=== PATIENT | female | born 1985 | race American Indian/Alaskan Native ===

== ENCOUNTER 2018-04-27 16:32 | Outpatient (CLI) | payer MEDICAID ==
[2018-04-27 18:50] LABS: Alanine Aminotransferase 6 units/L (7-56); Uric Acid 3.3 mg/dL (3.5-7.6)
[2018-04-27 18:51] LABS: Hematocrit 26.5 % (30.3-42.9); Hemoglobin 8.4 gm/dl (10.1-14.3); Mean Corpuscular HGB Conc 32 % (30-34); Mean Corpuscular Hemoglobin 27 pg (28-32); Mean Corpuscular Volume 84 fl (79-97); Red Blood Count 3.14 M/mm3 (3.65-5.03)
[2018-04-27 18:52] LABS: Basophils % (Auto) 0.4 % (0.0-1.8); Lymphocytes # (Auto) 1.9 K/mm3 (1.2-5.4); Lymphocytes % (Auto) 21.8 % (13.4-35.0); Monocytes # (Auto) 1.1 K/mm3 (0.0-0.8); Monocytes % (Auto) 12.8 % (0.0-7.3); Platelet Count 274 K/mm3 (140-440); Red Cell Distribution Width 17.2 % (13.2-15.2)
[2018-04-27 18:53] LABS: Eosinophils # (Auto) 0.1 K/mm3 (0.0-0.4)
[2018-04-27 19:24] VITALS: BP 137/86
[2018-04-27 19:44] LABS: Bacteria,Urine 1+ /HPF (Negative); Calcium Oxalate Crystals,Urine 1+; Mucus,Urine FEW /HPF
[2018-04-27 20:05] LABS: Color,Urine Straw (Yellow)
[2018-04-27 20:06] LABS: Bilirubin,Urine Negative (Negative); Blood,Urine Negative (Negative); Protein,Urine <15 mg/dL mg/dL (Negative); Urobilinogen,Urine < 2.0 mg/dL (<2.0)
--- NOTE | 2018-04-27 20:09 | Ultrasound Report ---
FINAL REPORT EXAM: US OB LIMITED HISTORY: elevated b/p's in office TECHNIQUE: Obstetrical sonographic imaging was performed Comparison: None FINDINGS: Images demonstrate single live intrauterine gestation in cephalic presentation. Calculated SHMUEL 10.9 centimeters. heart rate measures 150 beats per minute. IMPRESSION: Single live intrauterine gestation. Cephalic presentation. SHMUEL 10.9 centimeters. heart rate 150 beats per minute.
--- NOTE | 2018-04-27 20:11 | Ultrasound Report ---
FINAL REPORT EXAM: US OB BPP WO NON-STRESS HISTORY: elevated b/p's in office estimated gestational age 38 weeks 0 days, estimated due date 05/11/2018 TECHNIQUE: Obstetrical sonographic imaging was performed. Biophysical profile score 8/8. heart rate 150 beats per minute. FINDINGS: Biophysical profile score 8/8. IMPRESSION:
== END 2018-04-27 19:59 | disposition home or self-care (01) ==
LOC: TRG 16:32
PROVIDERS: ATTEND Obstetrics & Gynecology
DX: O47.1 False labor at or after 37 completed weeks of gestation (principal); Z3A.38 38 weeks gestation of pregnancy
CPT/HCPCS: 36415; 59025; 76815; 76819; 81001; 82565; 83615; 84450; 84460; 84550; 85025

== ENCOUNTER 2018-04-29 12:02 | Inpatient (IN) | payer MEDICAID ==
[2018-04-29] MEDS ORDERED: MINERAL OIL PO PRN (14:26)
[2018-04-29] MEDS ORDERED: BRETHINE IVP PRN (14:26)
[2018-04-29] MEDS ORDERED: BRETHINE SUB-Q PRN (14:26)
[2018-04-29] MEDS ORDERED: SUBLIMAZE IV PRN (14:26)
[2018-04-29] MEDS ORDERED: XYLOCAINE 2% INFILTRATI ONE (14:26)
[2018-04-29 14:39] LABS: Basophils % (Auto) 0.6 % (0.0-1.8); Eosinophils # (Auto) 0.1 K/mm3 (0.0-0.4); Hematocrit 27.1 % (30.3-42.9); Hemoglobin 8.7 gm/dl (10.1-14.3); Lymphocytes # (Auto) 1.5 K/mm3 (1.2-5.4); Lymphocytes % (Auto) 19.4 % (13.4-35.0); Mean Corpuscular HGB Conc 32 % (30-34); Mean Corpuscular Hemoglobin 27 pg (28-32); Mean Corpuscular Volume 83 fl (79-97); Monocytes # (Auto) 0.9 K/mm3 (0.0-0.8); Monocytes % (Auto) 11.5 % (0.0-7.3); Platelet Count 296 K/mm3 (140-440); Red Blood Count 3.25 M/mm3 (3.65-5.03); Red Cell Distribution Width 17.4 % (13.2-15.2)
--- NOTE | 2018-04-29 14:39 | History and Physical Report ---
History of Present Illness Date of examination: 04/29/18 Date of admission: 04/29/18 Chief complaint: Contractions History of present illness: 32yo G 4 P 1 0 2 1 at 38 weeks 2 days here from the office with c/o contractions. She denies VB, LOF, headache, visual disturbances or RUQ pain. She is a [facility] patient who initiated care at 10 weeks gestation. Her course was complicated by PIH (on Labetalol 100mg PO BID ), anemia (on iron therapy) and vitamin D deficiency (supplementation completed) . She has a h/o genital herpes; on suppressive therapy. labs: O+, antibody neg, Rubella immune, VDRL NR, HBsAg neg, HIV neg, CT /NG neg, GBS neg. Past History Past Medical History: other (ectopic ) Past Surgical History: other (hernia repair, salpingostomy) BUSINESS APPLICATIONS SPECIALIST History: chlamydia, gonorrhea, herpes, other (TIA) Family/Genetic History: heart disease (cardiac arrest), other (major depression , ) Social history: single, lives with family, full code. denies: smoking, alcohol abuse, IV drug use - Obstetrical History Expected Date of Delivery: 05/11/18 Actual Gestation: 38 Week(s) 2 Day(s) : 4 Para: 1 Hx # Term Pregnancies: 1 Number of Pregnancies: 0 Spontaneous Abortions: 2 Number of Living Children: 1 #1 Infant Gender: Male year: [birth year]) Birthweight: 3.232 kg Method of Delivery: Vaginal Gestational age at delivery: 39 Complications: none Medications and Allergies Allergies Allergy/AdvReac Type Severity Reaction Status Date / Time Penicillins Allergy Severe Hives Verified 04/27/18 17:41 Home Medications Medication Instructions Recorded Confirmed Last Taken Type Ciprofloxacin HCl [Cipro] 500 mg PO Q12H #14 tab 01/19/14 Unknown Rx Fluconazole [Diflucan] 50 mg PO QDAY #2 tablet 01/19/14 Unknown Rx HYDROcodone/APAP 5-325 [[place] 1 each PO Q6HR PRN #10 tablet 01/19/14 Unknown Rx 5/325 mg] Phenazopyridine [Pyridium] 100 mg PO Q8H #9 tablet 01/19/14 Unknown Rx Active Meds: Active Medications Ephedrine Sulfate (Ephedrine Sulfate) 10 mg IV Q2M PRN PRN Reason: Hypotension Fentanyl (Sublimaze) 100 mcg IV Q2H PRN PRN Reason: Labor Pain Lactated Ringer's (Lactated Ringers) 1,000 mls @ 125 mls/hr IV DIRECT MARLENY Oxytocin/Sodium Chloride (Pitocin/Ns 20 Unit/1000ml Drip) 20 units in 1,000 mls @ 125 mls/hr IV DIRECT MARLENY Lidocaine (Xylocaine 2%) 20 ml INFILTRATI ONCE ONE Stop: 04/29/18 14:27 Mineral Oil (Mineral Oil) 30 ml PO QHS PRN PRN Reason: Constipation Terbutaline Sulfate (Brethine) 0.25 mg SUB-Q ONCE PRN PRN Reason: Hyperstimulation/Hypertonicity Terbutaline Sulfate (Brethine) 0.25 mg IVP ONCE PRN PRN Reason: Hyperstimulation/Hypertonicity Review of Systems All systems: negative - Vital Signs Vital signs: Vital Signs Temp Resp 97.2 F L 18 04/29/18 13:51 04/29/18 13:51 Temp Pulse Resp BP Pulse Ox 97.2 F L 83 18 130/74 04/29/18 13:51 04/29/18 14:27 04/29/18 13:51 04/29/18 14:27 - Obstetrical FHR: category 2 FHR comments: baseline 140, moderate variability, + accels, variable decels Cervical Dilatation: 3.5 (per RN) Cervical Effacement Percentage: 70 (per RN) station: -2 (per RN) Uterine Contraction Frequency (min): 2-4 Uterine Contraction Pattern: Regular Results All other labs normal. Assessment and Plan - Patient Problems (1) 38 weeks gestation of Current Visit: Yes Status: Acute (2) Active labor at term Current Visit: Yes Status: Acute Plan to address problem: Admit to L&D with routine labor orders Oxytocin for augmentation, if indicated Anticipate vaginal delivery (3) PIH ( induced hypertension) Current Visit: Yes Status: Acute Qualifiers: Trimester: third trimester Qualified Code(s): O13.3 - Gestational [ -induced] hypertension without significant proteinuria, third trimester Plan to address problem: BPs stable: SBP 130-142, DBP 74-85 PIH labs ordered Continue antihypertensive therapy with Labetalol 100mg PO BID
[2018-04-29] MEDS: LACTATED RINGERS 1,000 ML IV SCH ×3 (14:58→17:14)
[2018-04-29] MEDS ORDERED: PITOCin/NS 20 UNIT/1000ML DRIP 20 UNITS/1,000 ML BAG IV SCH (15:00)
[2018-04-29 16:13] LABS: Uric Acid 3.2 mg/dL (3.5-7.6)
[2018-04-29] MEDS ORDERED: NARCAN 2 MG/2 ML IV PRN (17:14)
--- NOTE | 2018-04-29 17:14 | Anesthesia Consultation ---
Anesthesia Consult and Med Hx Date of service: 04/29/18 - Airway Anesthetic Teeth Evaluation: Good ROM Head & Neck: Adequate Mental/Hyoid Distance: Adequate Mallampati Class: Class II Intubation Access Assessment: Probably Good - Pre-Operative Health Status ASA Pre-Surgery Classification: ASA2 Proposed Anesthetic Plan: Epidural, Spinal - Pulmonary Hx Asthma: No COPD: No Hx Pneumonia: No - Cardiovascular System Hx Hypertension: Yes (taking labetalol) - Central Nervous System Hx Seizures: No Hx Psychiatric Problems: No - Endocrine Hx Renal Disease: No Hx End Stage Renal Disease: No Hx Hypothyroidism: No Hx Hyperthyroidism: No - Hematic Hx Anemia: No Hx Sickle Cell Disease: No - Other Systems Hx Alcohol Use: No
[2018-04-29] MEDS ORDERED: fentaNYL-BUPIV 2 MCG/ML-0.125% 200 MCG/100 ML BAG EPIDURAL SCH (18:00)
[2018-04-29] MEDS ORDERED: DULCOLAX PR PRN (21:43)
[2018-04-29] MEDS ORDERED: TUCKS PAD TP PRN (21:43)
[2018-04-29] MEDS ORDERED: TYLENOL PO PRN (21:43)
[2018-04-29] MEDS ORDERED: MILK OF MAGNESIA PO PRN (21:43)
[2018-04-29] MEDS ORDERED: LANSINOH TP PRN (21:43)
--- NOTE | 2018-04-29 21:51 | Procedure Note ---
OB Delivery Note - Delivery Date of Delivery: 04/29/18 Surgeon: MARY MEDRANO Estimated blood loss: other (250 cc) - Vaginal Delivery presentation: vertex Delivery position: OA Intrapartum events: shoulder dystocia Delivery induction: none Delivery monitor: external FHT, external uterine Route of delivery: Delivery placenta: spontaneous Delivery cord: nuchal cord, 3 umbilical vessels Episiotomy: none Delivery laceration: none Anesthesia: epidural Delivery comments: liveborn female infant weighing 5 lbs. 15 oz. over intact perineum. Nuchal cord times 1 manually reduced. Mild shoulder dystocia resolved with rotation of shoulders to oblique. Cord blood obtained. Spontaneous delivery of intact placenta and membranes; EBL 250 cc. Pitocin to IV fluids after delivery of placenta. No lacerations noted on careful inspection. Vaginal sweep negative. Sponge count correct. NICU present for delivery.
[2018-04-29] MEDS ORDERED: NORMODYNE PO SCH (22:00)
[2018-04-29] MEDS ORDERED: SODIUM CHLORIDE FLUSH SYRINGE 10 ML IV PRN (22:00)
[2018-04-29] MEDS ORDERED: FEOSOL PO SCH (22:00)
[2018-04-29] MEDS: COLACE PO SCH (23:31)
[2018-04-29] MEDS: MOTRIN PO SCH (23:32)
[2018-04-30] MEDS: MOTRIN PO SCH ×3 (05:41→23:52)
[2018-04-30 08:55] LABS: Hematocrit 25.7 % (30.3-42.9); Hemoglobin 8.1 gm/dl (10.1-14.3)
--- NOTE | 2018-04-30 09:02 | Progress Note ---
Assessment and Plan A: day 1 S/P . Anemia. P: Supplement with iron TID. Encouraged ambulation. Subjective - Subjective Date of service: 04/30/18 Principal diagnosis: day 1 S/P Interval history: day 1 S/P spontaneous vaginal delivery. Patient is doing well. She is voiding without difficulty and ambulating well. She is tolerating a regular diet. She reports a small to moderate amount of lochia. Patient denies headache, chest pain, cough, shortness of breath, nausea or vomiting, or leg pain. Reports afterbirth cramping and wants to take a different medication for this. Patient is undecided what she wants to use for control but is considering Nexplanon. Patient reports: appetite normal, voiding normally, pain well controlled, flatus , ambulating normally [place]: doing well Objective - Vital Signs Latest vital signs: Vital Signs Temp Pulse Resp BP BP Pulse Ox 04/30/18 07:50 97.9 F 91 H 20 110/60 100 04/30/18 05:41 18 04/29/18 23:32 18 04/29/18 22:55 98.6 F 88 20 120/72 04/29/18 22:22 85 127/85 04/29/18 22:13 82 100 04/29/18 22:07 86 99 04/29/18 21:52 88 135/79 04/29/18 21:37 100 H 139/78 04/29/18 21:22 89 140/85 04/29/18 21:08 90 149/83 04/29/18 20:53 92 H 131/61 04/29/18 20:37 103 H 155/73 04/29/18 20:22 83 133/78 04/29/18 20:08 80 136/86 04/29/18 20:07 78 100 04/29/18 20:02 71 100 04/29/18 19:57 83 100 04/29/18 19:54 80 142/79 04/29/18 19:52 81 100 04/29/18 19:47 90 100 04/29/18 19:42 78 100 04/29/18 19:38 80 130/80 04/29/18 19:37 78 100 04/29/18 19:32 78 100 04/29/18 19:27 87 100 08/17/18 19:26 96.6 F L 83 18 135/79 08/17/18 19:24 79 135/79 08/17/18 19:22 75 100 08/17/18 19:17 79 100 08/17/18 19:12 82 100 08/17/18 19:08 78 136/81 0817/18 19:07 79 100 08/17/18 19:02 82 100 08/17/18 18:57 80 100 08/17/18 18:53 80 144/80 0817/18 18:52 78 100 08/17/18 18:47 79 100 08/17/18 18:42 78 100 08/17/18 18:40 100 H 125/90 17/18 18:37 94 H 100 0817/18 18:32 81 100 08/17/18 18:27 78 100 08/17/18 18:24 85 126/80 0817/18 18:22 80 100 08/17/18 18:17 76 100 0817/18 18:12 82 100 0817/18 18:08 72 127/79 0817/18 18:07 71 100 0817/18 18:02 75 100 08/17/18 17:57 73 100 0817/18 17:52 79 100 0817/18 17:50 74 137/82 0817/18 17:47 82 100 08/17/18 17:45 81 138/83 17/18 17:42 78 123/76 100 08/17/18 17:37 72 132/74 100 0817/18 17:36 84 128/72 17/18 17:34 73 121/67 0817/18 17:32 81 100 08/17/18 17:10 90 115/72 0817/18 17:04 74 114/70 17/18 16:55 97.2 F L 74 18 114/70 17/18 15:36 20 0817/18 14:27 83 130/74 17/18 14:12 80 142/85 17/18 13:57 87 132/77 17/18 13:51 97.2 F L 18 Intake and Output 17/18 /18/18 18/18 23:59 07:59 15:59 Intake Total 283.334 Output Total 1 Balance 282.334 Intake: IV 283.334 Lactated Ringers 1,000 ml 283.334 @ 125 mls/hr IV DIRECT MARLENY Rx#:[id number] Output: Urine 1 Void 1 Other: Total, Output Amount 1 # Voids Void 400 Estimated Blood Loss 250 - Exam Breasts: Present: deferred Cardiovascular: Present: Regular rate, Normal S1, Normal S2, No murmurs Lungs: Present: Clear to auscultation Abdomen: Present: normal appearance, soft, normal bowel sounds. Absent: distention, tenderness, guarding, rigidity Uterus: Present: normal, firm, fundal height below umbilicus. Absent: bogginess , tenderness Extremities: Present: normal. Absent: tenderness, edema - Labs Labs: Abnormal lab results 04/29/18 04/29/18 04/30/18 Range/Units 14:15 15:34 08:12 RBC 3.25 L (3.65-5.03) M/mm3 Hgb 8.7 L 8.1 L (10.1-14.3) gm/dl Hct 27.1 L 25.7 L (30.3-42.9) % MCH 27 L (28-32) pg RDW 17.4 H (13.2-15.2) % [place] % (Auto) 11.5 H (0.0-7.3) % [place] # 0.9 H (0.0-0.8) K/mm3 Uric Acid 3.2 L (3.5-7.6) mg/dL Lactate Dehydrogenase 229 H (91-180) units/L
[2018-04-30] MEDS: COLACE PO SCH ×2 (14:24→22:01)
[2018-04-30] MEDS: FEOSOL PO SCH ×2 (14:25→20:09)
[2018-04-30] MEDS: NORCO 5/325 PO PRN ×2 (14:26→20:12)
[2018-05-01] MEDS: MOTRIN PO SCH ×3 (05:16→18:37)
--- NOTE | 2018-05-01 08:34 | Progress Note ---
Assessment and Plan A: day 2 S/P spontaneous vaginal delivery. P: Discharge patient home today. Discussed with patient discharge instructions and warning signs in detail. Advised patient to avoid IC, avoid lifting and heavy chores, avoid driving. Advised pt. to follow up at [facility] in 6 weeks and prn. Rx Motrin 800 mg, #30, 1 po every 8 hours prn for cramping, 0 RF called to [facility] on [address]. Advised pt. to continue her vitamins and iron supplements at home. Pt. voiced understanding of all instructions. Subjective - Subjective Date of service: 05/01/18 Principal diagnosis: day 2 S/P Interval history: day 2 S/P spontaneous vaginal delivery. Patient is doing well. She is voiding without difficulty and ambulating well. She is tolerating a regular diet. She reports a small to moderate amount of lochia. Patient denies headache, chest pain, cough, shortness of breath, nausea or vomiting, or leg pain. Patient is undecided what she wants to use for control but is considering Nexplanon. Patient reports: appetite normal, voiding normally, pain well controlled, flatus , ambulating normally : doing well Objective - Vital Signs Latest vital signs: Vital Signs Temp Pulse Resp BP Pulse Ox 05/01/18 00:00 98.0 F 62 20 132/73 04/30/18 23:52 18 04/30/18 20:12 20 04/30/18 16:00 98.7 F 93 H 20 129/74 99 04/30/18 14:24 20 Intake and Output 04/30/18 05/01/18 05/01/18 23:59 07:59 15:59 Intake Total 440 240 Balance 440 240 Intake: Oral 440 240 Other: Total, Intake Amount 440 240 # Voids Void 2 1 - Exam Cardiovascular: Present: Regular rate, Normal S1, Normal S2 Lungs: Present: Clear to auscultation Abdomen: Present: normal appearance, soft, normal bowel sounds. Absent: distention, tenderness, guarding, rigidity Uterus: Present: normal, firm, fundal height below umbilicus. Absent: bogginess , tenderness Extremities: Present: normal. Absent: tenderness, edema - Labs Labs: Abnormal lab results 04/30/18 Range/Units 08:12 Hgb 8.1 L (10.1-14.3) gm/dl Hct 25.7 L (30.3-42.9) %
--- NOTE | 2018-05-01 08:46 | Discharge Summary ---
Providers - Providers Date of Admission: 04/29/18 12:03 Date of discharge: 05/01/18 Attending physician: PAO MEHTA MD Primary care physician: PAO MEHTA MD Hospitalization Reason for admission: active labor Delivery: Episiotomy: none Laceration: none Other procedures: none complications: none Discharge diagnosis: IUP at term delivered [place] baby: female Pertinent studies: Labs Hospital course: Normal hospital course. Condition at discharge: Good Disposition: DC-01 TO HOME OR SELFCARE - Discharge Diagnoses (1) Term delivered Status: Acute Plan - Provider Discharge Summary Activity: routine, no sex for 6 weeks, no heavy lifting 4 weeks, no strenuous exercise Diet: routine Instructions: routine Additional instructions: Call your doctor immediately for: * Fever > 100.5 * Heavy vaginal bleeding ( >1 pad per hour) * Severe persistent headache * Shortness of breath * Reddened, hot, painful area to leg or breast - Follow up plan Follow up: PAO MEHTA MD [Primary Care Provider] - 6 Weeks
[2018-05-01] MEDS: COLACE PO SCH (14:00)
[2018-05-01] MEDS: FEOSOL PO SCH (14:00)
[2018-05-01 21:55] VITALS: BP 120/68
== END 2018-05-01 20:00 | disposition home or self-care (01) | DRG 774 ==
LOC: TRG 12:02 → LD 12:03 → OB 23:11
PROVIDERS: ADMIT Obstetrics & Gynecology; ATTEND Obstetrics & Gynecology
PROC: 10E0XZZ Delivery of Products of Conception, External Approach (ICD-10-PCS; principal; 2018-04-29)
PROC: 3E0R3BZ Introduction of Anesthetic Agent into Spinal Canal, Percutaneous Approach (ICD-10-PCS; 2018-04-29)
PROC: 00HU33Z Insertion of Infusion Device into Spinal Canal, Percutaneous Approach (ICD-10-PCS; 2018-04-29)
DX: O13.4 Gestational [pregnancy-induced] hypertension without significant proteinuria, complicating childbirth (principal); O66.0 Obstructed labor due to shoulder dystocia; O69.81X0 Labor and delivery complicated by cord around neck, without compression, not applicable or unspecified; Z3A.38 38 weeks gestation of pregnancy; Z37.0 Single live birth; Z86.73 Personal history of transient ischemic attack (TIA), and cerebral infarction without residual deficits; Z90.721 Acquired absence of ovaries, unilateral; Z88.0 Allergy status to penicillin; D64.9 Anemia, unspecified; O99.02 Anemia complicating childbirth; Z79.899 Other long term (current) drug therapy; O98.32 Other infections with a predominantly sexual mode of transmission complicating childbirth; A60.00 Herpesviral infection of urogenital system, unspecified
CPT/HCPCS: 36415; 83615; 84450; 84460; 84550; 85014; 85018; 85025; 86850; 86900; 86901; A6250; J2590; J3010; J7120

== ENCOUNTER 2018-12-18 12:27 | Day surgery (SDC) | payer MEDICAID ==
--- NOTE | 2018-12-18 13:15 | Emergency Department Report ---
Blank Doc - Documentation Documentation: 33 y/o (ectopic x1 and x mischargage) (Vaginal delivery april 2018) 6 we eks prengnant and having painful cramps and vaginal bleeding. Initally seen at [facility] [place] 3 days ago and advised to return to ED if symptoms worsen. She reports worsen pain and cramps
[2018-12-18 13:47] LABS: Basophils # (Auto) 0.1 K/mm3 (0.0-0.1); Basophils % (Auto) 0.6 % (0.0-1.8); Eosinophils # (Auto) 0.3 K/mm3 (0.0-0.4); Eosinophils % (Auto) 3.3 % (0.0-4.3); Hematocrit 34.8 % (30.3-42.9); Hemoglobin 11.7 gm/dl (10.1-14.3); Lymphocytes # (Auto) 2.1 K/mm3 (1.2-5.4); Lymphocytes % (Auto) 22.1 % (13.4-35.0); Mean Corpuscular HGB Conc 34 % (30-34); Mean Corpuscular Volume 94 fl (79-97); Monocytes # (Auto) 0.8 K/mm3 (0.0-0.8); Monocytes % (Auto) 8.3 % (0.0-7.3); Platelet Count 317 K/mm3 (140-440); Red Cell Distribution Width 17.2 % (13.2-15.2)
[2018-12-18 14:02] LABS: BUN/Creatinine Ratio 14; Blood Urea Nitrogen 7 mg/dL (7-17); Calcium 9.1 mg/dL (8.4-10.2); Hemolysis Index 3
[2018-12-18 14:04] LABS: Bilirubin,Urine NEG (Negative); Blood,Urine LG (Negative); Color,Urine Red (Yellow); Mucus,Urine 3+ /HPF; Urobilinogen,Urine < 2.0 mg/dL (<2.0)
[2018-12-18 14:05] LABS: RBC,Urine > 182.0 /HPF (0.0-6.0)
--- NOTE | 2018-12-18 15:25 | Emergency Department Report ---
HPI - General Chief Complaint: Vaginal Bleeding Time Seen by Provider: 12/18/18 13:13 - HPI HPI: Room 7 The patient is a 33-year-old female presenting with a chief complaint of vaginal bleeding. The patient states she found out she was one week ago. 6 days ago she developed some vaginal bleeding and lower abdominal cramping. The patient states she went to [facility] for evaluation and diagnosed with a threatened . Patient states they were unable to see a heartbeat on ultrasound stated it may be too early. The patient states she was initially going through approximately one pad per day but 3 days ago for vaginal bleeding and cramping increased. Patient states she's gone through approximately 4 pads per day. Patient is uncertain she's passed tissue but admits to passing blood clots in the ED. Patient denies history of fever Location: Pelvis Duration: [See above] Quality: Cramping Severity: Moderate Modifying factors: [see above] Context: [see above] Mode of transportation: [not driving] ED Past Medical Hx - Past Medical History Hx Hypertension: Yes (taking labetalol) - Surgical History Additional Surgical History: hernia repair, right ectopic preg - Family History Family history: no significant - Social History Smoking Status: Former Smoker (none 1 week) Substance Use Type: None (denies illicit drug use) - Medications Home Medications: Home Medications Medication Instructions Recorded Confirmed Last Taken Type Ciprofloxacin HCl [Cipro] 500 mg PO Q12H #14 tab 01/19/14 04/29/18 Unknown Rx Fluconazole [Diflucan] 50 mg PO QDAY #2 tablet 01/19/14 04/29/18 Unknown Rx HYDROcodone/APAP 5-325 [[place] 1 each PO Q6HR PRN #10 tablet 01/19/14 04/29/18 Unknown Rx 5/325 mg] Phenazopyridine [Pyridium] 100 mg PO Q8H #9 tablet 01/19/14 04/29/18 Unknown Rx Cholecalciferol (Vitamin D3) 6,000 units PO QWEEK 04/29/18 04/29/18 04/18/18 08:00 History [Vitamin D3 3,000 unit] Labetalol [Normodyne] 200 mg PO BID 04/29/18 04/29/18 04/29/18 09:00 History 19 [place] 1 tab PO DAILY 04/29/18 04/29/1804/28/18 07:00 History Promethazine 12.5 mg PO PRN 04/29/18 04/29/18 04/25/18 18:00 History ED Review of Systems ROS: Stated complaint: 6WKS /HEAVY BLEEDING Other details as noted in HPI Constitutional: denies: fever Eyes: denies: eye pain ENT: denies: throat pain Respiratory: no symptoms reported Cardiovascular: denies: chest pain Endocrine: no symptoms reported Gastrointestinal: abdominal pain Genitourinary: abnormal menses Musculoskeletal: back pain Neurological: denies: headache Physical Exam - Physical Exam Vital Signs: Vital Signs 12/18/18 13:12 Temperature 98 F Pulse Rate 74 Respiratory 20 Rate Blood Pressure 131/70 O2 Sat by Pulse 99 Oximetry Physical Exam: GENERAL: The patient is well-developed well-nourished female lying on stretcher appearing to be in mild discomfort HEENT: Normocephalic. Atraumatic. Extraocular motions are intact. Patient has moist mucous membranes. NECK: Supple. Trachea midline CHEST/LUNGS: Clear to auscultation. There is no respiratory distress noted. HEART/CARDIOVASCULAR: Regular. There is no tachycardia. There is no gallop rub or murmur. ABDOMEN: Abdomen is soft, with discomfort to palpation in the right pelvis and suprapubic region. Patient has normal bowel sounds. There is no abdominal distention. SKIN: There is no rash. There is no edema. There is no diaphoresis. NEURO: The patient is awake, alert, and oriented. The patient is cooperative. The patient has normal speech MUSCULOSKELETAL: There is no evidence of acute injury. PELVIC: Large amount of blood in vaginal vault with some clots. Unable to visualize cervix ED Course Vital Signs 12/18/18 13:12 Temperature 98 F Pulse Rate 74 Respiratory 20 Rate Blood Pressure 131/70 O2 Sat by Pulse 99 Oximetry - Consultations Consultation #1: 12/18/18 17:17 PBX TEACHER paged 12/18/18 17:[address] Perry-will evaluate patient ED Medical Decision Making - Lab Data Result diagrams: 12/18/18 13:28 12/18/18 13:28 Laboratory Tests 12/18/18 12/18/18 12/18/18 13:28 13:28 13:28 WBC 9.6 RBC 3.70 Hgb 11.7 Hct 34.8 MCV 94 MCH 32 MCHC 34 RDW 17.2 H Plt Count 317 Lymph % (Auto) 22.1 [place] % (Auto) 8.3 H Eos % (Auto) 3.3 Baso % (Auto) 0.6 Lymph # 2.1 [place] # 0.8 Eos # 0.3 Baso # 0.1 Seg Neutrophils % 65.7 Seg Neutrophils # 6.3 Sodium 139 Potassium 3.8 Chloride 105.0 Carbon Dioxide 26 Anion Gap 12 BUN 7 Creatinine 0.5 L Estimated GFR > 60 BUN/Creatinine Ratio 14 Glucose 64 L Calcium 9.1 HCG, Quant 84646 H Urine Color Urine Turbidity Urine pH Ur Specific [place] Urine Protein Urine Glucose (UA) Urine Ketones Urine Blood Urine Nitrite Urine Bilirubin Urine Urobilinogen Ur Leukocyte Esterase Urine WBC (Auto) Urine RBC (Auto) U Epithel Cells (Auto) Urine Mucus Blood Type Ord Rhog Gestat Weeks 12/18/18 12/18/18 13:44 15:10 WBC RBC Hgb Hct MCV MCH MCHC RDW Plt Count Lymph % (Auto) [place] % (Auto) Eos % (Auto) Baso % (Auto) Lymph # [place] # Eos # Baso # Seg Neutrophils % Seg Neutrophils # Sodium Potassium Chloride Carbon Dioxide Anion Gap BUN Creatinine Estimated GFR BUN/Creatinine Ratio Glucose Calcium HCG, Quant Urine Color Red Urine Turbidity Cloudy Urine pH 6.0 Ur Specific [place] 1.031 H Urine Protein 100 mg/dl Urine Glucose (UA) Neg Urine Ketones Neg Urine Blood Lg Urine Nitrite Neg Urine Bilirubin Neg Urine Urobilinogen < 2.0 Ur Leukocyte Esterase Tr Urine WBC (Auto) 64.0 H Urine RBC (Auto) > 182.0 U Epithel Cells (Auto) 1.0 Urine Mucus 3+ Blood Type O POSITIVE Ord Rhogam Gestat Weeks pos - Radiology Data Radiology results: report reviewed (pelvic ultrasound), image reviewed (pelvic ultrasound) [facility] [address] [place] [address] Ultrasound Report Signed Patient: ANA BISHOP MR# : [id number] : 1985 Acct:[id number] Age/Sex: 33 / F ADM Date: 12/18/18 Loc: ED Attending Dr: Ordering Physician: KIMBERLY TENA MD Date of Service: 12/18/18 Procedure(s): US OB transvaginal Accession Number(s): [id number] cc: KIMBERLY TENA MD PROCEDURE: US OB TRANSVAGINAL, US OB <= 14 WEEKS FETUS TECHNIQUE: Transvesical and endovaginal pelvic sonographic imaging was performed HISTORY: , vaginal bleeding LMP 10/09/2018 COMPARISONS: None FINDINGS: Images demonstrate uterus to measure 14.3 x 6.4 x 6.8 cm. Endometrial thickness measures 18 mm. By transvesical exam, cervical canal measured 5 cm, distended with heterogeneous echogenic debris. Patient states she passed a large clot when she emptied her bladder. After prep for transvaginal exam, the cervical thickness has resolved. Within the uterus, there is an irregular gestational sac. A pole is identified measuring 3 mm. No heart tones are detected. Questionable yolk sac. By crown-rump length, estimated gestational age is 5 weeks 6 days. Right ovary measures 3.9 x 1.6 x 2.5 cm, within normal limits. Left ovary measures 4.5 x 2.9 x 2.6 cm with a 2.6 cm cyst, within normal limits. IMPRESSION: Findings suggest nonviable five-week six-day embryo with spontaneous in progress. On transvesical exam, the cervix is distended 5 cm with echogenic debris which resolves after the patient empties her bladder. Patient states she passed a large clot. This document is electronically signed by Zara Lui MD., December 18 2018 04:50:22 PM ET Transcribed By: SAGAR Jc criss By: ZARA LUI Electronically Authenticated By: ZARA LUI Signed Date/Time: 12/18/182 DD/ 1612 TD/TT: 12/18/18 1614 - Differential Diagnosis threatened , spontaneous , incomplete Critical care attestation.: If time is entered above; I have spent that time in minutes in the direct care of this critically ill patient, excluding procedure time. ED Disposition Clinical Impression: UTI (urinary tract infection), Incomplete Disposition: OP ADMIT IP TO THIS HOSP Is pt being admited?: Yes Does the pt Need Aspirin: No Condition: Fair Referrals: MARILOU THAYER [Other] - 3-5 Days Time of Disposition: 18:54
[2018-12-18] MEDS ORDERED: TYLENOL ONE (16:15)
[2018-12-18] MEDS ORDERED: TYLENOL PO ONE (16:24)
--- NOTE | 2018-12-18 16:52 | Ultrasound Report ---
PROCEDURE: US OB TRANSVAGINAL, US OB <= 14 WEEKS FETUS TECHNIQUE: Transvesical and endovaginal pelvic sonographic imaging was performed HISTORY: , vaginal bleeding LMP 10/09/2018 COMPARISONS: None FINDINGS: Images demonstrate uterus to measure 14.3 x 6.4 x 6.8 cm. Endometrial thickness measures 18 mm. By transvesical exam, cervical canal measured 5 cm, distended with heterogeneous echogenic debris. Pa tient states she passed a large clot when she emptied her bladder. After prep for transvaginal exam, the cervical thickness has resolved. Within the uterus, there is an irregular gestational sac. A pole is identified measuring 3 mm. No heart tones are detected. Questionable yolk sac. By crown-rump length, estimated gestational age is 5 weeks 6 days. Right ovary measures 3.9 x 1.6 x 2.5 cm, within normal limits. Left ovary measures 4.5 x 2.9 x 2.6 cm with a 2.6 cm cyst, within normal limits. IMPRESSION: Findings suggest nonviable five-week six-day embryo with spontaneous in progress. On transvesical exam, the cervix is distended 5 cm with echogenic debris which resolves after the pat ient empties her bladder. Patient states she passed a large clot. This document is electronically signed by Zara Lui MD., December 18 2018 04:50:22 PM ET
--- NOTE | 2018-12-18 17:36 | Short Stay Summary ---
Short Stay Documentation Date of service: 12/18/18 Narrative H&P: Pt is a 33yo BF LMP 10/09/18 presents to [facility] ER with a chief complaint of vaginal bleeding. The patient states she found out she was one week ago, and 6 days ago she developed some vaginal bleeding and lower abdominal cramping. She went to [facility] for evaluation and diagnosed with a threatened . They were unable to see a heartbeat on ultrasound stated it may be too early. The patient states she was initially going through approximately one pad per day, but 3 days ago vaginal bleeding and cramping increased. She is uncertain if she has passed tissue but admits to passing blood clots in the ED. Bchg was 28,300 and pelvic u/s showed an enlarged uterus with an irregular gestational sac with spontaneous in progress. H/H - 11.7/34.8 Will proceed with a D&C. - History Principal diagnosis: Incomplete H&P: obtained from office Past Medical History: No medical history Past Surgical History: No surgical history Social history: no significant social history, single - Allergies and Medications Current Medications: Allergies Penicillins Allergy (Severe, Verified 04/27/18 17:41) Hives Home Medications Medication Instructions Recorded Confirmed Last Taken Type Ciprofloxacin HCl [Cipro] 500 mg PO Q12H #14 tab 01/19/14 04/29/18 Unknown Rx Fluconazole [Diflucan] 50 mg PO QDAY #2 tablet 01/19/14 04/29/18 Unknown Rx HYDROcodone/APAP 5-325 [[place] 1 each PO Q6HR PRN #10 tablet 01/19/14 04/29/18 Unknown Rx 5/325 mg] Phenazopyridine [Pyridium] 100 mg PO Q8H #9 tablet 01/19/14 04/29/18 Unknown Rx Cholecalciferol (Vitamin D3) 6,000 units PO QWEEK 04/29/18 04/29/18 04/18/18 08:00 History [Vitamin D3 3,000 unit] Labetalol [Normodyne] 200 mg PO BID 04/29/18 04/29/18 04/29/18 09:00 History 19 Chewable 1 tab PO DAILY 04/29/18 04/29/18 04/28/18 07:00 History Promethazine 12.5 mg PO PRN 04/29/18 04/29/18 04/25/18 18:00 History - Physical exam General appearance: mild distress Lungs: Clear to auscultation Heart: Regular rate Gastrointestinal: normal Female Genitourinary: deferred Rectal Exam: deferred Extremities: no ischemia, No edema Neurological: Normal gait, Normal speech - Brief post op/procedure progress note Date of procedure: 12/18/18 Pre-op diagnosis: Incomplete Post-op diagnosis: same Procedure: Dilatation and curettage Anesthesia: MAC Findings: A 10-12 week size uterus with large amounts of blood and products of conception Surgeon: JUDAH SIERRA Estimated blood loss: 50-100ml Pathology: list (products of conception) Specimen disposition: to lab Condition: stable - Hospital course Hospital course: Unremarkable - Disposition Condition at discharge: Good Disposition: - TO HOME OR SELFCARE - Discharge Diagnoses (1) Incomplete Status: Ruled-out Short Stay Discharge Plan Activity: no restrictions Diet: regular Follow up with: MARILOU THAYER [Other] - 3-5 Days JUDAH SIERRA MD [Staff Physician] - 7 Days PAO MEHTA MD [Staff Physician] - 7 Days Prescriptions: Methylergonovine [Methergine] 0.2 mg PO Q8HR #6 tablet Ibuprofen [Motrin] 800 mg PO Q8HR PRN #30 tablet PRN Reason: Pain, Moderate (4-6) Doxycycline [Vibramycin CAP] 100 mg PO Q12HR #14 capsule
[2018-12-18] MEDS ORDERED: NACL 0.9% IV SCH (17:37)
[2018-12-18] MEDS ORDERED: GENTAMICIN IV SCH (17:37)
[2018-12-18] MEDS ORDERED: CLEOCIN 900 MG/50 mL 900 MG/50 ML BAG IV SCH (17:37)
[2018-12-18] MEDS ORDERED: ZOFRAN IV ONE (17:42)
[2018-12-18] MEDS ORDERED: NACL 0.9% 1000 ML 1,000 ML IV ONE (17:42)
[2018-12-18] MEDS ORDERED: SUBLIMAZE IV ONE (17:42)
[2018-12-18] MEDS ORDERED: DECADRON ONE (18:48)
[2018-12-18] MEDS ORDERED: DIPRIVAN 10 MG/ML IV ONE (18:48)
[2018-12-18] MEDS ORDERED: ZOFRAN ONE (18:48)
[2018-12-18] MEDS ORDERED: XYLOCAINE MPF 2% ONE (18:48)
[2018-12-18] MEDS ORDERED: SUBLIMAZE ONE (18:48)
--- NOTE | 2018-12-18 18:56 | Anesthesia Day of Surgery ---
Anesthesia Day of Surgery - Day of Surgery Patient Examined: Yes Patient H&P Reviewed: Yes Patient is NPO: Yes (last ate at 11am) Beta Blockers: Yes (labetalol for induced HTN ) Cardiac Clearance: No Pulmonary Clearance: No Uriah's Test: N/A
--- NOTE | 2018-12-18 18:58 | Anesthesia Consultation ---
Anesthesia Consult and Med Hx - Airway Anesthetic Teeth Evaluation: Good ROM Head & Neck: Adequate Mental/Hyoid Distance: Adequate Mallampati Class: Class I - Pulmonary Exam CTA: Yes - Cardiac Exam Cardiac Exam: RRR - Pre-Operative Health Status ASA Pre-Surgery Classification: ASA2, Emergency Proposed Anesthetic Plan: General - Pulmonary Hx Smoking: No Hx Asthma: No SOB: No - Cardiovascular System Hx Hypertension: Yes (taking labetalol) Hx Coronary Artery Disease: No - Central Nervous System Hx Seizures: No Hx Psychiatric Problems: No - Endocrine Hx Renal Disease: No Hx End Stage Renal Disease: No Hx Hypothyroidism: No Hx Hyperthyroidism: No - Hematic Hx Anemia: No Hx Sickle Cell Disease: No - Other Systems Hx Alcohol Use: No
--- NOTE | 2018-12-18 19:44 | Operative Report ---
Operative Report Operative Report: PREOPERATIVE DIAGNOSIS: Incomplete POSTOPERATIVE DIAGNOSIS: Same OPERATIVE PROCEDURE: Dilatation and curettage. SURGEON: Aashish Perry MD ANESTHESIA: Gen. mask ANESTHESIOLOGIST: Dr. Loya ESTIMATED BLOOD LOSS: 100 mL's FINDINGS: A 12-14 weeks size uterus with large amounts of blood clots and products of conception COMPLICATIONS: None COUNTS: Correct x3. PROCEDURE: After the patient was correctly identified as the patient, and after general anesthesia was administered, the patient was prepped and draped in the usual sterile fashion and placed in dorsal lithotomy position. First, the bladder was emptied using a straight catheter. Next, a speculum was placed in the vaginal vault and the anterior lip of the cervix was grasped using a single- tooth tenaculum. The uterus was sounded to 12 cm. The cervical os was sequentially dilated, and a 12 mm vaccurette was used to suction blood and products of conception from the uterine cavity. After all the products of conception were removed, the procedure was considered complete. All instruments were removed from the vagina. The patient tolerated the procedure well and was transferred to the recovery room in stable condition.
[2018-12-18] MEDS ORDERED: TORADOL IV ONE ×2 (19:47→19:48)
[2018-12-18] MEDS ORDERED: TORADOL ONE (19:53)
[2018-12-18] MEDS ORDERED: NACL 0.9% 1000 ML 1,000 ML ONE (19:56)
[2018-12-18 20:42] VITALS: BP 124/89
== END 2018-12-18 21:40 | disposition home or self-care (01) ==
LOC: ED 12:27 → OR 21:19
PROVIDERS: ATTEND Internal Medicine
DX: O03.4 Incomplete spontaneous abortion without complication (principal); I10 Essential (primary) hypertension; Z88.0 Allergy status to penicillin; Z79.899 Other long term (current) drug therapy; Z87.891 Personal history of nicotine dependence; Z83.3 Family history of diabetes mellitus; Z82.49 Family history of ischemic heart disease and other diseases of the circulatory system
CPT/HCPCS: 36415; 59812; 76801; 76817; 80048; 81001; 84702; 85025; 86900; 86901; 88305; 88342; 96374; 96375; 99285; J1100; J1580; J1885; J2405; J2704; J3010; J7030

== ENCOUNTER 2019-02-02 06:33 | Day surgery (SDC) | payer MEDICAID ==
[2019-02-02] MEDS ORDERED: LACTATED RINGERS 1,000 ML IV SCH (07:00)
[2019-02-02] MEDS ORDERED: NEURONTIN PO NR (07:00)
[2019-02-02] MEDS ORDERED: VERSED IV NR (07:00)
[2019-02-02] MEDS ORDERED: VANCOMYCIN/NS 1 GM/250 ML 1 GM/250 ML BAG IV NR (08:00)
--- NOTE | 2019-02-02 08:30 | Anesthesia Consultation ---
Anesthesia Consult and Med Hx Date of service: 02/02/19 - Airway Anesthetic Teeth Evaluation: Good ROM Head & Neck: Adequate Mental/Hyoid Distance: Adequate Mallampati Class: Class I Intubation Access Assessment: Good - Pulmonary Exam CTA: Yes - Cardiac Exam Cardiac Exam: RRR - Pre-Operative Health Status ASA Pre-Surgery Classification: ASA1 Proposed Anesthetic Plan: General - Pulmonary Hx Smoking: Yes (BLACK AND MILD LIGHTLY FOR 8YRS) Hx Respiratory Symptoms: No - Cardiovascular System Hx Hypertension: No Hx Heart Attack/AMI: No Hx Cardia Arrhythmia: No - Central Nervous System CVA: No - Gastrointestinal Hx Gastroesophageal Reflux Disease: No - Endocrine Hx Renal Disease: No Hx Liver Disease: No Hx Insulin Dependent Diabetes: No Hx Non-Insulin Dependent Diabetes: No Hx Thyroid Disease: No - Other Systems Hx Alcohol Use: Yes Hx Obesity: No - Additional Comments Anesthesia Medical History Comments: No hx anesthetic complications.
--- NOTE | 2019-02-02 08:30 | Anesthesia Day of Surgery ---
Anesthesia Day of Surgery - Day of Surgery Patient Examined: Yes Patient H&P Reviewed: Yes Patient is NPO: Yes
[2019-02-02] MEDS ORDERED: XYLOCAINE MPF 2% ONE (10:48)
[2019-02-02] MEDS ORDERED: SUBLIMAZE ONE ×2 (10:48→11:12)
[2019-02-02] MEDS ORDERED: ZEMURON IV ONE (10:48)
[2019-02-02] MEDS ORDERED: DIPRIVAN 10 MG/ML IV ONE ×2 (10:49→14:03)
[2019-02-02] MEDS ORDERED: MARCAINE-EPI 0.25%-1:200,000 INFILTRATI ONE (11:12)
[2019-02-02] MEDS ORDERED: MARCAINE 0.5% INFILTRATI ONE (11:22)
[2019-02-02] MEDS ORDERED: XYLOCAINE 1% 20 mL ONE (11:22)
[2019-02-02] MEDS ORDERED: NACL 0.9% IR ONE (13:15)
[2019-02-02] MEDS ORDERED: ZOFRAN ONE ×2 (13:35→15:37)
[2019-02-02] MEDS ORDERED: DILAUDID ONE (13:35)
--- NOTE | 2019-02-02 14:05 | Short Stay Summary ---
Short Stay Documentation Date of service: 02/02/19 - History Principal diagnosis: umbilical hernia H&P: obtained from office - Allergies and Medications Current Medications: Allergies Penicillins Allergy (Severe, Verified 02/01/19 18:46) Hives Home Medications Medication Instructions Recorded Confirmed Last Taken Type medroxyPROGESTERone ACETATE 150 mg IM Q3M 02/01/19 02/01/19 Unknown History [Medroxyprogesterone Acetate] Active Medications Hydromorphone HCl (Dilaudid) 0.5 mg IV Q10MIN PRN PRN Reason: Pain , Severe (7-10) Stop: 02/02/19 20:00 Vancomycin HCl (Vancomycin/Ns 1 Gm/250 Ml) 1 gm in 250 mls @ 166.667 mls/hr IV PREOP NR; Protocol Stop: 02/02/19 20:00 Last Admin: 02/02/19 08:30 Dose: 166.667 mls/hr Documented by: Lactated Ringer's (Lactated Ringers) 1,000 mls @ 75 mls/hr IV DIRECT MARLENY Last Admin: 02/02/19 08:30 Dose: 75 mls/hr Documented by: Midazolam HCl (Versed) 2 mg IV PREOP NR Stop: 02/02/19 23:59 Last Admin: 02/02/19 08:57 Dose: 2 mg Documented by: - Brief post op/procedure progress note Date of procedure: 02/02/19 Pre-op diagnosis: umbilical hernia Post-op diagnosis: same Procedure: robotic assisted laparoscopic umbilical hernia repair with mesh Anesthesia: GETA, local (PERFECTO block) Findings: 2 cm umbilical hernia and <0.5 cm adjacent ventral hernia. Incarcerated preperitoneal fat Surgeon: ZACHARY DAY Granite Polisher: LENA VASQUEZ Estimated blood loss: minimal Pathology: none Condition: stable - Hospital course Hospital course: Pt observed in PACU and discharged to home in stable condition when criteria met - Disposition Condition at discharge: Good Disposition: DC-01 TO HOME OR SELFCARE Short Stay Discharge Plan Activity: other (no heavy lifting) Diet: regular Wound: open to air, per your surgeon's advice Additional Instructions: SEE PRINTED DISCHARGE INSTRUCTIONS Follow up with: Juanita THAYER [Other] - 7 Days ZACHARY DAY DO [Staff Physician] - 14 Days Prescriptions: Ibuprofen [Motrin 800 MG tab] 800 mg PO Q8HR #30 tablet HYDROcodone/APAP 5-325 [[place] 5/325] 1 each PO Q6HR PRN #20 tablet PRN Reason: Pain
[2019-02-02] MEDS ORDERED: ROBINUL ONE (14:08)
[2019-02-02] MEDS ORDERED: BLOXIVERZ ONE (14:08)
[2019-02-02] MEDS: DILAUDID IV PRN ×3 (14:26→15:05)
[2019-02-02] MEDS ORDERED: NORCO 5/325 PO PRN (15:15)
[2019-02-02 16:29] VITALS: BP 119/76
--- NOTE | 2019-02-08 15:34 | Operative Report ---
PREOPERATIVE DIAGNOSIS: Umbilical hernia. POSTOPERATIVE DIAGNOSIS: Umbilical hernia. PROCEDURE: Robotic-assisted laparoscopic umbilical hernia repair with mesh. ANESTHESIA: General endotracheal anesthesia, TAP block. FINDINGS: A 2 cm umbilical hernia and less than 0.5 cm adjacent ventral hernia. Incarcerated preperitoneal fat. SURGEON: Candy Alexander DO FIELD OPERATIONS COORDINATOR: Butch Yang MD ESTIMATED BLOOD LOSS: Minimal. PATHOLOGY: None. CONDITION AND DISPOSITION: Stable to PACU. HISTORY OF PRESENT ILLNESS AND INDICATION: The patient is a 33-year-old female who presented to the surgery clinic with complaints of a bulge at her umbilicus, which was uncomfortable and tender at times. On exam, she was found to have a partially reducible umbilical hernia containing fat. Recommendation was for umbilical hernia repair. I discussed all risks, benefits, and alternatives to surgery with the patient. The robotic, laparoscopic and open approaches were all discussed and questions were answered. Consent was obtained. PROCEDURE IN DETAIL: The patient was identified in the preoperative area and taken back to the operating room, placed on the operating table in supine position. After anesthesia was induced, Chu catheter was sterilely placed by the circulating nurse. Abdomen was then prepped and draped in the usual sterile fashion. A timeout was performed. A rasta incision was made in the left upper quadrant through which a Veress needle was inserted. The Veress needle position was confirmed using the saline drop test and the abdomen insufflated to 15 mmHg. Once the abdomen was insufflated, a 5 mm incision was made in the right upper abdomen approximately 2 fingerbreadths below the costal margin and a 5 mm Optiview trocar was inserted under direct visualization. The Veress needle was visualized and there was no injury, underlying the Veress needle tract. The Veress needle was removed. The remainder of the abdomen was inspected. There was no underlying injury to any of the abdominal structures. An additional 12 mm balloon trocar was then placed in the right lateral abdomen and then an additional 8 mm right lower quadrant robotic trocar. The 5 mm right upper quadrant trocar was removed and replaced with an 8 mm robotic trocar under direct visualization. The robot was then docked with a monopolar scissors in arm #1 and a fenestrated bipolar arm #2. Surgeon was then transferred to the console. The hernia was visualized, but with partially obscured with fat. A preperitoneal flap was then created using the scissors. Using a combination of blunt dissection and electrocautery, the preperitoneal plane was developed until the hernia was encountered. The plane was then continued on the cephalad and caudad aspect of the hernia until the hernia was encircled. There was a large amount of preperitoneal fat that was chronically incarcerated in the hernia as well as scar tissue from the patient's prior laparoscopic surgery. The scar tissue as well was taken down using electrocautery and the preperitoneal fat was carefully reduced. Once all the fat was reduced, the hernia was measured and approximately 2 cm. The preperitoneal plane was continued beyond the hernia in order to accommodate placement of mesh. An additional very small less than 0.5 cm posterior fascial defect was encountered approximately to 1 cm superior to the umbilical defect and did contain some preperitoneal fat, which was reduced. Once the pocket was created, a Bard flat mesh was used to repair the defect. This was cut to 8 cm round and inserted into the abdomen along with suture material. Both fascial defects were closed with running 0 V-Loc suture. The mesh was then placed and affixed to the posterior fascia in the cephalad and caudad corners using 0 Vicryl interrupted sutures. The pocket was checked for hemostasis and then the peritoneum was reapproximated using 3-0 V-Loc running suture. Any defects in the peritoneum were closed using Vicryl suture until no mesh was seen exposed to the bowel. All suture material was then removed under direct visualization. The robot was then undocked. The 12 mm port was removed and the fascia closed with 0 Vicryl interrupted suture using the David-Lisseth device. The remainder of the ports were removed under direct visualization and the abdomen slowly desufflated. The mesh was seen to lay flat. The skin incisions were then closed with 4-0 Monocryl subcuticular stitches and skin glue. A fluff gauze was placed into the umbilicus and secured using a Tegaderm. An abdominal binder was placed. The patient was awoken from anesthesia and extubated, the Chu catheter removed and she was taken to PACU in stable condition. At the end of the case, all sponge, instrument, sharp counts were correct x 2. JOB# [id number] NK/NTS
== END 2019-02-02 16:25 | disposition home or self-care (01) ==
LOC: OR 06:33
PROVIDERS: ATTEND Surgery
DX: K42.9 Umbilical hernia without obstruction or gangrene (principal); F17.210 Nicotine dependence, cigarettes, uncomplicated; Z87.440 Personal history of urinary (tract) infections; Z72.89 Other problems related to lifestyle; Z98.890 Other specified postprocedural states; Z83.3 Family history of diabetes mellitus; Z88.0 Allergy status to penicillin; Z79.899 Other long term (current) drug therapy; Z90.721 Acquired absence of ovaries, unilateral; Z82.49 Family history of ischemic heart disease and other diseases of the circulatory system
CPT/HCPCS: 49653; 81025; C1781; J1170; J2250; J2405; J2704; J2710; J3010; J3370; J7120; S2900

== ENCOUNTER 2019-09-18 10:05 | Emergency (ER) | payer OTHER, MEDICAID ==
[2019-09-18 10:21] VITALS: BP 133/93
--- NOTE | 2019-09-18 11:19 | Event Note ---
ED Screening Note ED Screening Note: states she has cold symptoms that began 6 days ago has occasional episodes of vomiting, diarrhea, nausea, rhinorrhea, congestion, body aches no fever no productive cough no CP no SOB states she started having blisters to the lips that began this morning states she uses valacylovir but only had one pill left and needs a refill
--- NOTE | 2019-09-18 11:27 | Emergency Department Report ---
- General Chief Complaint: Upper Respiratory Infection Stated Complaint: COLD SYMP Time Seen by Provider: 09/18/19 11:13 Source: patient Mode of arrival: Ambulatory Limitations: No Limitations - History of Present Illness Initial Comments: pt is a 33 yo female who presents to the ED with c/o cold symptoms that began 6 days ago. she has occasional episodes of vomiting, diarrhea, nausea, rhinorrhea, congestion, body aches. she denies any fever, productive cough, CP, SOB. states she started having blisters to the lips that began this morning pt states she uses valacylovir but only had one pill left and needs a refill. allergy: penicillin. - Related Data Home Medications Medication Instructions Recorded Confirmed Last Taken medroxyPROGESTERone ACETATE 150 mg IM Q3M 02/01/19 02/01/19 Unknown [Medroxyprogesterone Acetate] Previous Rx's Medication Instructions Recorded Last Taken Type HYDROcodone/APAP 5-325 [[place] 1 each PO Q6HR PRN #20 tablet 02/02/19 Unknown Rx 5/325] Ibuprofen [Motrin 800 MG tab] 800 mg PO Q8HR #30 tablet 02/02/19 Unknown Rx valACYclovir [Valtrex] 1,000 mg PO BID 5 Days #20 tab 09/18/19 Unknown Rx Allergies Allergy/AdvReac Type Severity Reaction Status Date / Time Penicillins Allergy Severe Hives Verified 02/01/19 18:46 ED Review of Systems ROS: Stated complaint: COLD SYMP Other details as noted in HPI Comment: All other systems reviewed and negative ED Past Medical Hx - Past Medical History Previous Medical History?: No Hx Hypertension: No Hx Heart Attack/AMI: No Hx Congestive Heart Failure: No Hx Diabetes: No Hx Deep Vein Thrombosis: No Hx Liver Disease: No Hx Renal Disease: No Hx HIV: No - Surgical History Past Surgical History?: No Additional Surgical History: hernia repair, right ectopic preg - Social History Smoking Status: Current Every Day Smoker Substance Use Type: None - Medications Home Medications: Home Medications Medication Instructions Recorded Confirmed Last Taken Type medroxyPROGESTERone ACETATE 150 mg IM Q3M 02/01/19 02/01/19 Unknown History [Medroxyprogesterone Acetate] HYDROcodone/APAP 5-325 [[place] 1 each PO Q6HR PRN #20 tablet 02/02/19 Unknown Rx 5/325] Ibuprofen [Motrin 800 MG tab] 800 mg PO Q8HR #30 tablet 02/02/19 Unknown Rx valACYclovir [Valtrex] 1,000 mg PO BID 5 Days #20 tab 09/18/19 Unknown Rx ED Physical Exam - General Limitations: No Limitations General appearance: alert, in no apparent distress - Head Head exam: Present: atraumatic, normocephalic - Eye Eye exam: Present: normal appearance - ENT ENT exam: Present: normal orophraynx, mucous membranes moist, TM's normal bilaterally, normal external ear exam, other (small coalesced clear blisters present to the upper lip, healed blister present to the upper lip) - Respiratory Respiratory exam: Present: normal lung sounds bilaterally. Absent: respiratory distress, wheezes, rales, rhonchi, stridor, chest wall tenderness, accessory m uscle use, decreased breath sounds, prolonged expiratory - Cardiovascular Cardiovascular Exam: Present: regular rate, normal rhythm, normal heart sounds. Absent: systolic murmur, diastolic murmur, rubs, gallop - Neurological Exam Neurological exam: Present: alert, oriented X3 - Psychiatric Psychiatric exam: Present: normal affect, normal mood - Skin Skin exam: Present: warm, dry, intact ED Course Vital Signs 09/18/19 10:21 Temperature 98.2 F Pulse Rate 91 H Respiratory 16 Rate Blood Pressure 133/93 O2 Sat by Pulse 99 Oximetry ED Medical Decision Making - Medical Decision Making pt is a 33 yo female who presents to the ED with c/o cold symptoms that began 6 days ago. she has occasional episodes of vomiting, diarrhea, nausea, rhinorrhea, congestion, body aches. she denies any fever, productive cough, CP, SOB. states she started having blisters to the lips that began this morning pt states she uses valacylovir but only had one pill left and needs a refill. allergy: penicillin. VSS. on exam: small coalesced clear blisters present to the upper lip, healed blister present to the upper lip, examination consistent with oral HSV. Normal oropharynx, normal TMs and canals bilaterally, no rhonchi sounds bilaterally without wheezing, rales, rhonchi. Symptoms could be related to influenza or another viral illness, patient is out of the 48-hour range for Tamiflu, discussed the importance of oral rehydration and supportive care with patient. Will refill patient's valacyclovir for her oral HSV. advised pt please take medication as prescribed. may also use lysine for the lip over the counter. may take over the counter cough/cold medication such as robitussin. may also take a zyrtec and use flonase. use a humidifier. increase your fluid intake over the next several days. follow up with a primary care doctor in the next 2-3 days. return to the emergency room for any new or worsening symptoms. - Differential Diagnosis URI, PNA, influenza, viral syndrome, otitis, pharyngitis Critical care attestation.: If time is entered above; I have spent that time in minutes in the direct care of this critically ill patient, excluding procedure time. 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 may also use lysine for the lip over the counter. may take over the counter cough/cold medication such as robitussin. may also take a zyrtec and use flonase. use a humidifier. increase your fluid intake over the next several days. follow up with a primary care doctor in the next 2-3 days. return to the emergency room for any new or worsening symptoms. Prescriptions: valACYclovir [Valtrex] 1,000 mg PO BID 5 Days #20 tab Referrals: BRIANNA JENKINS MD [Staff Physician] - 2-3 Days [facility] [Outside] - 2-3 Days Forms: Work/School Release Form(ED) Time of Disposition: 11:24 Print Language: TURKMEN
== END 2019-09-18 14:37 | disposition home or self-care (01) ==
LOC: ED 10:05
DX: B00.2 Herpesviral gingivostomatitis and pharyngotonsillitis (principal); J06.9 Acute upper respiratory infection, unspecified; R11.2 Nausea with vomiting, unspecified; F17.200 Nicotine dependence, unspecified, uncomplicated; Z79.899 Other long term (current) drug therapy; Z88.0 Allergy status to penicillin
CPT/HCPCS: 99281

== ENCOUNTER 2021-10-30 16:53 | Emergency (ER) | payer MEDICAID, OTHER ==
[2021-10-30 18:33] LABS: Basophils % (Auto) 0.3 % (0.0-1.8); Eosinophils # (Auto) 0.2 K/mm3 (0.0-0.4); Eosinophils % (Auto) 2.6 % (0.0-4.3); Hematocrit 34.5 % (30.3-42.9); Lymphocytes # (Auto) 2.3 K/mm3 (1.2-5.4); Lymphocytes % (Auto) 26.2 % (13.4-35.0); Mean Corpuscular HGB Conc 32 % (30-34); Mean Corpuscular Volume 93 fl (79-97); Monocytes # (Auto) 0.7 K/mm3 (0.0-0.8); Monocytes % (Auto) 8.1 % (0.0-7.3); Platelet Count 315 K/mm3 (140-440); Red Blood Count 3.71 M/mm3 (3.65-5.03); Red Cell Distribution Width 18.6 % (13.2-15.2)
[2021-10-30 18:45] LABS: Blood Urea Nitrogen 8 mg/dL (7-17); Calcium 9.8 mg/dL (8.4-10.2); Hemolysis Index 2
[2021-10-30 18:53] LABS: BUN/Creatinine Ratio 13
[2021-10-30 19:00] LABS: Bilirubin,Urine NEG (Negative); Blood,Urine NEG (Negative); Color,Urine Yellow (Yellow); Mucus,Urine 3+ /HPF; WBC,Urine < 1.0 /HPF (0.0-6.0)
--- NOTE | 2021-10-30 19:44 | Emergency Department Report ---
ED HPI - General Chief complaint: Vaginal Bleeding Stated complaint: POSSIBLE MISCARRIAGE Time Seen by Provider: 10/30/21 17:02 Source: patient Mode of arrival: Ambulatory Limitations: No Limitations - History of Present Illness Initial comments: 36 yo comes to ER with vag bleeding in preg. Light in nature. No pain - mild cramps. Did not call her obgyn. High risk given age. Ambulatory to ER in nad. LMP 12/6 per pt Complaint: vaginal bleeding -: Gradual Quality: cramping Associated symptoms: denies other symptoms Vaginal bleeding: none :: Yes - Related Data Home Medications Medication Instructions Recorded Confirmed Last Taken medroxyPROGESTERone ACETATE 150 mg IM Q3M 02/01/19 02/01/19 Unknown [Medroxyprogesterone Acetate] Previous Rx's Medication Instructions Recorded Last Taken Type HYDROcodone/APAP 5-325 [[place] 1 each PO Q6HR PRN #20 tablet 02/02/19 Unknown Rx 5/325] Ibuprofen [Motrin 800 MG tab] 800 mg PO Q8HR #30 tablet 02/02/19 Unknown Rx valACYclovir [Valtrex] 1,000 mg PO BID 5 Days #20 tab 09/18/19 Unknown Rx Allergies Allergy/AdvReac Type Severity Reaction Status Date / Time Penicillins Allergy Severe Hives Verified 02/01/19 18:46 ED Review of Systems ROS: Stated complaint: POSSIBLE MISCARRIAGE Other details as noted in HPI Comment: All other systems reviewed and negative ED Past Medical Hx - Past Medical History Hx Hypertension: No Hx Heart Attack/AMI: No Hx Congestive Heart Failure: No Hx Diabetes: No Hx Deep Vein Thrombosis: No Hx Liver Disease: No Hx Renal Disease: No Hx HIV: No - Surgical History Past Surgical History?: Yes Additional Surgical History: hernia repair, right ectopic preg - Family History Family history: no significant - Social History Smoking Status: Current Every Day Smoker Substance Use Type: None - Medications Home Medications: Home Medications Medication Instructions Recorded Confirmed Last Taken Type medroxyPROGESTERone ACETATE 150 mg IM Q3M 02/01/19 02/01/19 Unknown History [Medroxyprogesterone Acetate] HYDROcodone/APAP 5-325 [[place] 1 each PO Q6HR PRN #20 tablet 02/02/19 Unknown Rx 5/325] Ibuprofen [Motrin 800 MG tab] 800 mg PO Q8HR #30 tablet 02/02/19 Unknown Rx valACYclovir [Valtrex] 1,000 mg PO BID 5 Days #20 tab 09/18/19 Unknown Rx ED Physical Exam - General Limitations: No Limitations General appearance: alert, in no apparent distress - Head Head exam: Present: atraumatic, normocephalic - Eye Eye exam: Present: normal appearance - ENT ENT exam: Present: mucous membranes moist - Neck Neck exam: Present: normal inspection - Respiratory Respiratory exam: Present: normal lung sounds bilaterally. Absent: respiratory distress - Cardiovascular Cardiovascular Exam: Present: regular rate, normal rhythm. Absent: systolic murmur, diastolic murmur, rubs, gallop - GI/Abdominal GI/Abdominal exam: Present: soft, normal bowel sounds - Extremities Exam Extremities exam: Present: normal inspection - Back Exam Back exam: Present: normal inspection - Neurological Exam Neurological exam: Present: alert, oriented X3 - Psychiatric Psychiatric exam: Present: normal affect, normal mood - Skin Skin exam: Present: warm, dry, intact, normal color. Absent: rash ED Course Vital Signs 10/30/21 17:17 Temperature 98.5 F Pulse Rate 82 Respiratory 16 Rate Blood Pressure 130/79 [Left] O2 Sat by Pulse 99 Oximetry ED Medical Decision Making - Lab Data Result diagrams: 10/30/21 18:00 10/30/21 18:00 - Radiology Data Radiology results: report reviewed, image reviewed see report - Medical Decision Making Labs 10/30/21 10/30/21 10/30/21 18:00 18:00 18:00 WBC 8.7 RBC 3.71 Hgb 11.0 Hct 34.5 MCV 93 MCH 30 MCHC 32 RDW 18.6 H Plt Count 315 Lymph % (Auto) 26.2 [place] % (Auto) 8.1 H Eos % (Auto) 2.6 Baso % (Auto) 0.3 Lymph # (Auto) 2.3 [place] # (Auto) 0.7 Eos # (Auto) 0.2 Baso # (Auto) 0.0 Seg Neutrophils % 62.8 Seg Neutrophils # 5.5 Sodium 139 Potassium 4.2 Chloride 104.5 Carbon Dioxide 24 Anion Gap 15 BUN 8 Creatinine 0.6 Estimated GFR > 60 BUN/Creatinine Ratio 13 Glucose 92 Calcium 9.8 HCG, Quant 46166 H Urine Color Urine Turbidity Urine pH Ur Specific [place] Urine Protein Urine Glucose (UA) Urine Ketones Urine Blood Urine Nitrite Urine Bilirubin Urine Urobilinogen Ur Leukocyte Esterase Urine WBC (Auto) Urine RBC (Auto) U Epithel Cells (Auto) Urine Mucus Blood Type 10/30/21 10/30/21 18:00 Unknown WBC RBC Hgb Hct MCV MCH MCHC RDW Plt Count Lymph % (Auto) [place] % (Auto) Eos % (Auto) Baso % (Auto) Lymph # (Auto) [place] # (Auto) Eos # (Auto) Baso # (Auto) Seg Neutrophils % Seg Neutrophils # Sodium Potassium Chloride Carbon Dioxide Anion Gap BUN Creatinine Estimated GFR BUN/Creatinine Ratio Glucose Calcium HCG, Quant Urine Color Yellow Urine Turbidity Clear Urine pH 6.0 Ur Specific [place] 1.028 Urine Protein 30 mg/dl Urine Glucose (UA) Neg Urine Ketones Neg Urine Blood Neg Urine Nitrite Neg Urine Bilirubin Neg Urine Urobilinogen 2.0 Ur Leukocyte Esterase Neg Urine WBC (Auto) < 1.0 Urine RBC (Auto) 4.0 U Epithel Cells (Auto) 2.0 Urine Mucus 3+ Blood Type O POSITIVE Vital Signs 10/30/21 17:17 Temperature 98.5 F Pulse Rate 82 Respiratory 16 Rate Blood Pressure 130/79 [Left] O2 Sat by Pulse 99 Oximetry ua noted labs noted rh pos us noted dc home with dc plan of care including 48 hour follow up with obgyn for repeat imaging. Pt verbalizes understanding. - Differential Diagnosis ro ab Critical care attestation.: If time is entered above; I have spent that time in minutes in the direct care of this critically ill patient, excluding procedure time. ED Disposition Clinical Impression: Vaginal bleeding during Disposition: 01 HOME / SELF CARE / HOMELESS Is pt being admited?: No Does the pt Need Aspirin: No Condition: Stable Instructions: Activity Restriction During Additional Instructions: rh pos 8w 1 day tylenol for pain follow up with obgyn in 48 hours for recheck of labs and imaging referral below pelvic rest Referrals: ARVIND CHAHAL MD [Staff Physician] - 3-5 Days Time of Disposition: 19:43
[2021-10-30 20:09] VITALS: BP 139/84
--- NOTE | 2021-10-30 20:47 | Ultrasound Report ---
ULTRASOUND OBSTETRIC INDICATION: with vaginal bleeding. TECHNIQUE: Transabdominal and Transvaginal. COMPARISON: No relevant prior imaging study available. FINDINGS: GESTATIONAL SAC: Well-defined oval shape and intrauterine in location. YOLK SAC: No significant abnormality. EMBRYO/FETUS: - [place]-Rump Length = 0.3 cm = 5 weeks, 6 day(s). - Heart Rate = 0 beats per minute. ADNEXA: No significant abnormality. FREE FLUID: None. ADDITIONAL FINDINGS: None. IMPRESSION: Single intrauterine without identification of cardiac activity. Please correlate with the clinical findings. Signer Name: Juanito Ko MD Signed: 10/30/2021 8:42 PM Workstation Name: [id number]
--- NOTE | 2021-10-30 20:47 | Ultrasound Report ---
ULTRASOUND OBSTETRIC INDICATION: with vaginal bleeding. TECHNIQUE: Transabdominal and Transvaginal. COMPARISON: No relevant prior imaging study available. FINDINGS: GESTATIONAL SAC: Well-defined oval shape and intrauterine in location. YOLK SAC: No significant abnormality. EMBRYO/FETUS: - [place]-Rump Length = 0.3 cm = 5 weeks, 6 day(s). - Heart Rate = 0 beats per minute. ADNEXA: No significant abnormality. FREE FLUID: None. ADDITIONAL FINDINGS: None. IMPRESSION: Single intrauterine without identification of cardiac activity. Please correlate with the clinical findings. Signer Name: Juanito Ko MD Signed: 10/30/2021 8:42 PM Workstation Name: [id number]
== END 2021-10-30 20:07 | disposition home or self-care (01) ==
LOC: ED 16:53
DX: O46.91 Antepartum hemorrhage, unspecified, first trimester (principal); Z3A.08 8 weeks gestation of pregnancy; Z88.0 Allergy status to penicillin; F17.200 Nicotine dependence, unspecified, uncomplicated
CPT/HCPCS: 36415; 76801; 76817; 80048; 81001; 84702; 85025; 86900; 86901; 99284

== ENCOUNTER 2021-10-31 14:25 | Emergency (ER) | payer SELFPAY ==
[2021-10-31] MEDS ORDERED: LACTATED RINGERS 1,000 ML IV SCH (15:00)
[2021-10-31] MEDS ORDERED: MORPHINE 4 MG/1 ML INJ IV ONE ×2 (15:16→19:44)
[2021-10-31] MEDS ORDERED: KETOROLAC 30 MG/1 ML INJ IV ONE (15:16)
[2021-10-31] MEDS ORDERED: SODIUM CHLORIDE 0.9% 1000 ML 1,000 ML IV ONE (15:17)
[2021-10-31] MEDS ORDERED: ONDANSETRON 4 MG/2 ML INJ IV ONE ×2 (15:17→20:03)
[2021-10-31 15:24] LABS: Basophils % (Auto) 0.4 % (0.0-1.8); Eosinophils # (Auto) 0.3 K/mm3 (0.0-0.4); Eosinophils % (Auto) 2.5 % (0.0-4.3); Hematocrit 32.8 % (30.3-42.9); Hemoglobin 10.6 gm/dl (10.1-14.3); Lymphocytes # (Auto) 2.3 K/mm3 (1.2-5.4); Lymphocytes % (Auto) 22.4 % (13.4-35.0); Mean Corpuscular HGB Conc 32 % (30-34); Mean Corpuscular Volume 93 fl (79-97); Monocytes # (Auto) 0.7 K/mm3 (0.0-0.8); Monocytes % (Auto) 6.6 % (0.0-7.3); Platelet Count 315 K/mm3 (140-440); Red Blood Count 3.55 M/mm3 (3.65-5.03); Red Cell Distribution Width 19.2 % (13.2-15.2)
[2021-10-31 15:47] LABS: Alanine Aminotransferase 7 units/L (7-56); BUN/Creatinine Ratio 15; Blood Urea Nitrogen 9 mg/dL (7-17); Calcium 9.5 mg/dL (8.4-10.2); Hemolysis Index 26
--- NOTE | 2021-10-31 16:36 | Emergency Department Report ---
ED Female HPI - General Chief complaint: Vaginal Bleeding Stated complaint: VAGINAL BLEEDING Time Seen by Provider: 10/31/21 14:49 Source: patient Mode of arrival: Ambulatory Limitations: No Limitations - History of Present Illness Initial comments: Chief complaint: Miscarriage HPI: This is a 36-year-old female with history of ectopic who presents with vaginal bleeding pelvic pain. Patient was diagnosed with threatened miscarriage at this hospital last night. She had moderate amount of bleeding at that time. 1 PM this afternoon she developed significant amount of bleeding with severe cramping. I reviewed ultrasound results from yesterday: Patient had evidence of IUP without cardiac activity. Rh positive. LMP 08/18/2021. Patient is approximately 8 weeks . She self diagnosed with home test. She has not yet received care. Patient has 2 children, she has had 2 miscarriages, 1 ectopic . MD Complaint: vaginal bleeding, pelvic pain -: Sudden, This afternoon Severity: severe Severity scale (0 -10): 10 Quality: cramping Consistency: constant Improves with: none Are you Now?: Yes - Related Data Home Medications Medication Instructions Recorded Confirmed Last Taken medroxyPROGESTERone ACETATE 150 mg IM Q3M 02/01/19 02/01/19 Unknown [Medroxyprogesterone Acetate] Previous Rx's Medication Instructions Recorded Last Taken Type HYDROcodone/APAP 5-325 [[place] 1 each PO Q6HR PRN #20 tablet 02/02/19 Unknown Rx 5/325] Ibuprofen [Motrin 800 MG tab] 800 mg PO Q8HR #30 tablet 02/02/19 Unknown Rx valACYclovir [Valtrex] 1,000 mg PO BID 5 Days #20 tab 09/18/19 Unknown Rx Allergies Allergy/AdvReac Type Severity Reaction Status Date / Time Penicillins Allergy Severe Hives Verified 02/01/19 18:46 ED Review of Systems ROS: Stated complaint: VAGINAL BLEEDING Other details as noted in HPI Comment: All other systems reviewed and negative Constitutional: denies: chills, fever, malaise Respiratory: denies: cough, shortness of breath Cardiovascular: denies: chest pain Gastrointestinal: denies: abdominal pain, nausea, vomiting, diarrhea ED Past Medical Hx - Past Medical History Previous Medical History?: No Hx Hypertension: No Hx Heart Attack/AMI: No Hx Congestive Heart Failure: No Hx Diabetes: No Hx Deep Vein Thrombosis: No Hx Liver Disease: No Hx Renal Disease: No Hx HIV: No - Surgical History Past Surgical History?: Yes Additional Surgical History: hernia repair, right ectopic preg, D&C - Social History Smoking Status: Current Every Day Smoker Substance Use Type: None - Medications Home Medications: Home Medications Medication Instructions Recorded Confirmed Last Taken Type medroxyPROGESTERone ACETATE 150 mg IM Q3M 02/01/19 02/01/19 Unknown History [Medroxyprogesterone Acetate] HYDROcodone/APAP 5-325 [[place] 1 each PO Q6HR PRN #20 tablet 02/02/19 Unknown Rx 5/325] Ibuprofen [Motrin 800 MG tab] 800 mg PO Q8HR #30 tablet 02/02/19 Unknown Rx valACYclovir [Valtrex] 1,000 mg PO BID 5 Days #20 tab 09/18/19 Unknown Rx ED Physical Exam - General Limitations: No Limitations General appearance: alert, in no apparent distress, other (Nontoxic but appears uncomfortable) - Head Head exam: Present: atraumatic, normocephalic - Eye Eye exam: Present: normal appearance - ENT ENT exam: Present: mucous membranes moist - Neck Neck exam: Present: normal inspection - Respiratory Respiratory exam: Present: normal lung sounds bilaterally. Absent: respiratory distress, wheezes, rales, rhonchi, stridor - Cardiovascular Cardiovascular Exam: Present: regular rate, normal rhythm, normal heart sounds. Absent: bradycardia, tachycardia, systolic murmur, diastolic murmur, rubs, gallop - GI/Abdominal GI/Abdominal exam: Present: soft, normal bowel sounds. Absent: distended, tenderness, guarding, rebound - External exam: Present: normal external exam Speculum exam: Present: vaginal bleeding, other (Copious amount of bleeding, clots evacuated with speculum and gauze) - Extremities Exam Extremities exam: Present: normal inspection - Neurological Exam Neurological exam: Present: alert, oriented X3 - Psychiatric Psychiatric exam: Present: normal affect, normal mood - Skin Skin exam: Present: warm, dry, intact, normal color. Absent: rash ED Course Vital Signs 10/31/21 14:39 Temperature 97.9 F Pulse Rate 110 H Respiratory 16 Rate Blood Pressure 150/97 [Left] O2 Sat by Pulse 98 Oximetry ED Medical Decision Making - Lab Data Result diagrams: 10/31/21 15:09 10/31/21 15:09 - Radiology Data Radiology results: report reviewed Patient Name: ANA BISHOP Gender: Female Date of : 1985 Referring Provider: BEAR MUSA Organization: [facility] Accession Number: [id number] Requested Date: October 31, 2021 15:17 Report Status: Final Requested Procedure: 1 Procedure Description: US OB <= 14 weeks fetus Modality: US Findings Reporting MD: Alberto Pollack Dictation Time: October 31, 2021 16:00 Long Goods Drier: Not available [employer]ge [employer] Date: ULTRASOUND PELVIS INDICATION: pelvic pain vaginal bleeding . TECHNIQUE: Transabdominal. Duplex Color Doppler used: Yes. COMPARISON: Previous day. FINDINGS: Uterus: Present. Size: 17.9 x 6.5 x 7.6 cm. The appearance is diffusely heterogeneous. Endometrial complex: No fluid is seen at the endometrial cavity. The previously seen gestational sac containing a yolk sac is no longer identified. A heterogeneous area is seen in the region of the cervix measuring 4.9 cm which appears new from the previous exam. Transvaginal imaging was not performed on the current exam. Mass lesions: None. Additional findings: None. Right Ovary -- Normal. Blood flow: Normal. Cyst or mass: None. Left Ovary-- Normal. Blood flow: Normal. Cyst or mass: None. Urinary Bladder: Normal. Free Fluid: None. Additional Findings: None. IMPRESSION: 1. Fluid is seen within the endometrial cavity. The previously seen gestational sac containing a yolk sac is no longer identified. Transvaginal imaging was not performed. 2. Abnormal appearance of the cervix likely due to passing blood clot. 3. Underlying heterogeneous appearing uterus. Signer Name: Alberto Pollack MD Signed: 10/31/2021 4:00 PM Workstation Name: [id number] - Medical Decision Making Incomplete miscarriage: Patient has continued significant bleeding even after evacuation of the vaginal vault. I reexamined patient she had persistent bleeding with large clots. According to LMP gestational age is 10 weeks 4 days I spoke with Dr. Bailey supply chain specialist on-call she recommended Methergine. She also recommended repeat ultrasound and repeat H&H. Critical care attestation.: If time is entered above; I have spent that time in minutes in the direct care of this critically ill patient, excluding procedure time. ED Disposition Clinical Impression: Incomplete miscarriage Condition: Stable Referrals: PRIMARY CARE, [Referring] - 3-5 Days
--- NOTE | 2021-10-31 17:04 | Ultrasound Report ---
ULTRASOUND PELVIS INDICATION: pelvic pain vaginal bleeding . TECHNIQUE: Transabdominal. Duplex Color Doppler used: Yes. COMPARISON: Previous day. FINDINGS: Uterus: Present. Size: 17.9 x 6.5 x 7.6 cm. The appearance is diffusely heterogeneous. Endometrial complex: No fluid is seen at the endometrial cavity. The previously seen gestational sac containing a yolk sac is no longer identified. A heterogeneous area is seen in the region of the cerv ix measuring 4.9 cm which appears new from the previous exam. Transvaginal imaging was not performed on the current exam. Mass lesions: None. Additional findings: None. Right Ovary -- Normal. Blood flow: Normal. Cyst or mass: None. Left Ovary-- Normal. Blood flow: Normal. Cyst or mass: None. Urinary Bladder: Normal. Free Fluid: None. Additional Findings: None. IMPRESSION: 1. Fluid is seen within the endometrial cavity. The previously seen gestational sac containing a yolk sac is no longer identified. Transvaginal imaging was not performed. 2. Abnormal appearance of the cervix likely due to passing blood clot. 3. Underlying heterogeneous appearing uterus. Signer Name: Alberto Pollack MD Signed: 10/31/2021 5:00 PM Workstation Name: [id number]
[2021-10-31] MEDS ORDERED: METHYLERGONOVINE MALEATE 0.2 MG/ML VIAL IM STA (18:50)
[2021-10-31] MEDS ORDERED: ACETAMINOPHEN 500 MG TAB PO ONE (19:44)
[2021-10-31 20:00] LABS: Hematocrit 24.2 % (30.3-42.9); Hemoglobin 7.9 gm/dl (10.1-14.3)
--- NOTE | 2021-10-31 20:16 | Event Note ---
Date: 10/31/21 (late entry as provider did not have acess to computer at time of initial call) Chart reviewed. Pt noted to have drop in h/h consistent with bleeding reported by ER provider. Awaiting repeat sonogram to see if 4cm clot present in vaginal area has passed as pt had bleeding since this time. Will evaluate after sonogram done to see if pt responds to the methergine that was given. No recent vitals have been recorded. ED provider will call me when results of sono available. Plan of care was discussed with Dr. Miguel and all questions were addressed and answered.
[2021-10-31 20:26] VITALS: BP 110/60
--- NOTE | 2021-10-31 21:14 | Ultrasound Report ---
ULTRASOUND PELVIS INDICATION: Severe persistent bleeding, severe pelvic pain. TECHNIQUE: Transvaginal. Duplex Color Doppler used: Yes. COMPARISON: None available FINDINGS: Uterus: Present. Size: 9.5 x 6.1 x 7.5 cm. Endometrial complex: Endometrial complex measures approximately 0.9 cm. No gestational sac identified . Previously seen fluid is no longer present. Mass lesions: None. Additional findings: None. Right Ovary -- Normal. Blood flow: Normal. Cyst or mass: 1.7 cm cyst. Left Ovary-- Normal. Blood flow: Normal. Cyst or mass: None. Urinary Bladder: Normal. Free Fluid: None. Additional Findings: None. IMPRESSION: 1. No intrauterine . Previously seen fluid at the endometrial stripe is resolved. 2. Benign-appearing right ovarian cyst. No adnexal abnormality identified. Signer Name: Alberto Pollack MD Signed: 10/31/2021 9:10 PM Workstation Name: [id number]
--- NOTE | 2021-10-31 21:31 | Event Note ---
Case we discussed with Dr. Weber regarding ultrasound findings showing resolution of endometrial fluid. Repeat vital signs showing improvedl tachycardia and normal blood pressure. Patient does have a drop in H&H. Dr. Weber to see patient to determine disposition
--- NOTE | 2021-10-31 21:56 | Event Note ---
Date: 10/31/21 Pt seen and evaluated. She desires d/c home. No bleeding noted on vulva or vaginally at this time. perineum is dry. Pt can be dc home with dx of complete /miscarriage and f/u in my office next week. Office number is [phone]. Rx left on chart.
== END 2021-10-31 22:25 | disposition home or self-care (01) ==
LOC: ED 14:25
DX: O03.4 Incomplete spontaneous abortion without complication (principal); Z3A.10 10 weeks gestation of pregnancy; F17.200 Nicotine dependence, unspecified, uncomplicated; Z88.0 Allergy status to penicillin; Z79.899 Other long term (current) drug therapy
CPT/HCPCS: 36415; 76801; 76817; 80053; 84702; 85014; 85018; 85025; 96361; 96372; 96374; 96375; 96376; 99284; J1885; J2210; J2270; J2405; J7030; Q0162